=== PATIENT | male | born 1945 | race Caucasian/White ===

== ENCOUNTER 2017-04-09 11:52 | Observation (INO) | payer MEDICARE, OTHER ==
[~2017-04-09] VITALS: Ht 188 cm; Wt 105.0 kg
[2017-04-09] VITALS (7 sets, daily range): BP systolic 102–156; BP diastolic 65–114; PULSE 60–76; RESP 16–17; TEMP 97.8–98.2; O2SAT 96–97
[~2017-04-09 11:52] MED LIST: 1-ME1LIQ PO; ASPI81 PO; ATOR10 PO; CLOP75 PO; GLIM4TAB PO; LISI5 PO; METF500 PO; METO25 PO; OMEP20TA PO
[2017-04-09 12:48] LABS: AUTOMATED NEUTROPHIL # 4.5 TH/MM3 (1.8-7.7); BASOPHIL % 0.6 % (0.0-2.0); EOSINOPHIL # 0.5 TH/MM3 (0-0.4); EOSINOPHIL % 6.7 % (0.0-4.0); HEMATOCRIT 47.6 % (39.0-51.0); LYMPH % 22.3 % (9.0-44.0); LYMPHOCYTE # 1.6 TH/MM3 (1.0-4.8); MEAN CELL VOLUME 94.4 FL (80.0-100.0); MEAN CORPUSCULAR HEMOGLOBIN 31.9 PG (27.0-34.0); MEAN CORPUSCULAR HGB CONC 33.8 % (32.0-36.0); NEUT % 64.4 % (16.0-70.0); PLATELET COUNT 151 TH/MM3 (150-450); RED BLOOD COUNT 5.05 MIL/MM3 (4.50-5.90); RED CELL DISTRIBUTION WIDTH 14.3 % (11.6-17.2)
[2017-04-09 12:57] LABS: HEMO FLAGS AUTO DIFF
[2017-04-09 13:00] LABS: ANION GAP 7 MEQ/L (5-15); BICARBONATE 23.5 MEQ/L (21.0-32.0); BLOOD UREA NITROGEN 13 MG/DL (7-18); CHLORIDE 108 MEQ/L (98-107); GLOMERULAR FILTRATION RATE 84 ML/MIN (>89); POTASSIUM 4.3 MEQ/L (3.5-5.1); SODIUM (NA) 138 MEQ/L (136-145)
[2017-04-09] MEDS ORDERED: PANT40TA3 PO (13:00)
[2017-04-09] MEDS ORDERED: AMLO10 PO (13:00)
[2017-04-09] MEDS ORDERED: LISI-519 PO (13:00)
[2017-04-09] MEDS ORDERED: PIOG15TA5 PO (13:00)
[2017-04-09] MEDS ORDERED: ATOR1TAB18 PO (13:00)
[2017-04-09] MEDS ORDERED: GLIM4TAB PO (13:00)
--- NOTE | 2017-04-09 13:00 | PD ---
HPI Chief Complaint: Cardiac Complaint Time Seen by Provider: 12:48 Travel History International Travel<30 days: No Contact w/Intl Traveler<30days: No Traveled to known affect area: No History of Present Illness HPI This is a 72-year-old male with history of coronary artery disease with stenting in place, diabetes, hypertension, hyperlipidemia who presents for evaluation of chest pain. Symptoms started this morning when he woke up at 5 AM. He describes it as a left-sided chest tightness which waxes and wanes, no obvious aggravating factors, belching seems to make it somewhat worse. The patient was admitted in 2014 with an STEMI, underwent stenting of the LAD and he reports that his current symptoms feel similar. He denies any nausea, vomiting, abdominal pain, flank pain, fevers, chills, calf swelling, recent travel or surgery. He reports that he took 2 baby aspirin this morning. His kids club attendant is Dr. Sifeuntes, his primary care physician is Dr. Wesley. No other complaints. PFSH Past Medical History Hx Anticoagulant Therapy: Yes Arthritis: No Asthma: No Autoimmune Disease: No Anxiety: No Depression: No Heart Rhythm Problems: No Cancer: No Cardiac Catheterization: Yes (2009) Cardiomyopathy: Yes Cardiovascular Problems: Yes High Cholesterol: Yes Chest Pain: Yes Congestive Heart Failure: No COPD: No Cerebrovascular Accident: Yes Coronary Artery Disease: Yes Diabetes: Yes Patient Takes Glucophage: No Diminished Hearing: Yes ([place]) Endocrine: Yes Gastrointestinal Disorders: Yes GERD: Yes Genitourinary: No Hiatal Hernia: No Hypertension: Yes Kidney Stones: No Musculoskeletal: No Neurologic: Yes Psychiatric: No Reproductive: No Respiratory: No Immunizations Current: Yes Migraines: No Myocardial Infarction: Yes (X3 LAST RI 2009) Renal Failure: No Seizures: No Sleep Apnea: No Thyroid Disease: No Ulcer: No Tetanus Vaccination: > 5 Years Influenza Vaccination: Yes Past Surgical History Abdominal Surgery: Yes (APPENDECTOMY) Appendectomy: Yes Cardiac Surgery: Yes (PRIOR CARDIAC STENTS) Coronary Stent: Yes (X5 LAST DONE 2009) Ear Surgery: No Endocrine Surgery: No Eye Surgery: No Genitourinary Surgery: No Gynecologic Surgery: No Oral Surgery: No Thoracic Surgery: No Other Surgery: Yes Social History Alcohol Use: No Tobacco Use: No Substance Use: No Allergies-Medications (Allergen,Severity, Reaction): Coded Allergies: No Known Allergies (Unverified , 04/09/17) Reported Meds & Prescriptions Reported Meds & Active Scripts Active Azithromycin 250 Mg Tab 250 Mg PO DAILY 4 Days Reported Glimepiride 4 Mg Tab 4 Mg PO DAILY Take with breakfast or first main meal Pantoprazole (Pantoprazole Sodium) 40 Mg Tab 40 Mg PO DAILY Norvasc (Amlodipine Besylate) 10 Mg Tab 10 Mg PO DAILY Pioglitazone (Pioglitazone HCl) 15 Mg Tab 15 Mg PO DAILY Lisinopril 5 Mg Tab 5 Mg PO DAILY Atorvastatin (Atorvastatin Calcium) 80 Mg Tab 80 Mg PO HS Review of Systems Except as stated in HPI: all other systems reviewed are Neg Physical Exam Narrative GENERAL: Well-nourished male in no acute distress SKIN: Warm and dry. HEAD: Atraumatic. Normocephalic. EYES: Pupils equal and round. No scleral icterus. No injection or drainage. ENT: No nasal bleeding or discharge. Mucous membranes pink and moist. NECK: Trachea midline. No JVD. CARDIOVASCULAR: Regular rate and rhythm. No murmur appreciated. RESPIRATORY: No accessory muscle use. Clear to auscultation. Breath sounds equal bilaterally. GASTROINTESTINAL: Abdomen soft, non-tender, nondistended. Hepatic and splenic margins not palpable. MUSCULOSKELETAL: No obvious deformities. No clubbing. No cyanosis. No edema. NEUROLOGICAL: Awake and alert. No obvious cranial nerve deficits. Motor grossly within normal limits. Normal speech. PSYCHIATRIC: Appropriate mood and affect; insight and judgment normal. Data Data Last Documented VS Vital Signs Date Time Temp Pulse Resp B/P (MAP) Pulse Ox O2 Delivery O2 Flow Rate FiO2 04/09/17 13:17 17 04/09/17 13:12 97.8 76 123/65 (84) 97 Room Air Orders Orders Electrocardiogram (04/09/17 12:09) Complete Blood Count With Diff (04/09/17 12:09) Basic Metabolic Panel (Bmp) (04/09/17 12:09) Ckmb (Isoenzyme) Profile (04/09/17 12:09) Troponin I (04/09/17 12:09) Chest, Single Ap (04/09/17 12:09) Iv Access Insert/Monitor (04/09/17 12:09) Ecg Monitoring (04/09/17 12:09) Oxygen Administration (04/09/17 12:09) Oximetry (04/09/17 12:09) Nitroglycerin Sl (Nitrostat Sl) (04/09/17 13:00) CKMB (04/09/17 12:24) CKMB% (04/09/17 12:24) Admit Order (Ed Use Only) (04/09/17 13:50) Azithromycin (Zithromax) (04/09/17 14:00) Morphine Inj (Morphine Inj) (04/09/17 14:00) Labs Laboratory Tests Test 04/09/17 12:24 White Blood Count 7.0 TH/MM3 Red Blood Count 5.05 MIL/MM3 Hemoglobin 16.1 GM/DL Hematocrit 47.6 % Mean Corpuscular Volume 94.4 FL Mean Corpuscular Hemoglobin 31.9 PG Mean Corpuscular Hemoglobin Concent 33.8 % Red Cell Distribution Width 14.3 % Platelet Count 151 TH/MM3 Mean Platelet Volume 9.0 FL Neutrophils (%) (Auto) 64.4 % Lymphocytes (%) (Auto) 22.3 % Monocytes (%) (Auto) 6.0 % Eosinophils (%) (Auto) 6.7 % Basophils (%) (Auto) 0.6 % Neutrophils # (Auto) 4.5 TH/MM3 Lymphocytes # (Auto) 1.6 TH/MM3 Monocytes # (Auto) 0.4 TH/MM3 Eosinophils # (Auto) 0.5 TH/MM3 Basophils # (Auto) 0.0 TH/MM3 CBC Comment AUTO DIFF Differential Comment AUTO DIFF CONFIRMED Blood Urea Nitrogen 13 MG/DL Creatinine 0.89 MG/DL Random Glucose 191 MG/DL Calcium Level 9.3 MG/DL Sodium Level 138 MEQ/L Potassium Level 4.3 MEQ/L Chloride Level 108 MEQ/L Carbon Dioxide Level 23.5 MEQ/L Anion Gap 7 MEQ/L Estimat Glomerular Filtration Rate 84 ML/MIN Total Creatine Kinase 143 U/L Creatine Kinase MB 2.6 NG/ML Troponin I LESS THAN 0.02 NG/ML MDM Medical Decision Making Medical Screen Exam Complete: Yes Emergency Medical Condition: Yes Medical Record Reviewed: Yes Differential Diagnosis Angina, acute coronary syndrome, pneumothorax, hemothorax, pericarditis, myocarditis, pneumonia, bronchitis, GERD Narrative Course The patient was placed on ECG monitoring and pulse oximetry. A 12-lead EKG was obtained. Plan is for basic lab work, chest x-ray. The patient was given 2 doses of sublingual nitroglycerin and he does report improvement in his pain with the nitroglycerin pain decreased from a 4 out of 10 to a 1 out of 10. His lab work and imaging studies have been reviewed. Initial set of cardiac enzymes are negative. Chest x-ray reveals mild left lower lobe infiltrates-he does report that he has had a dry cough lately. He is not febrile or tachycardic with no leukocytosis. The patient will be started on azithromycin. Given his significant cardiac risk factors, the plan is to admit him to the chest pain center for serial cardiac enzymes and rule out purposes. He is agreeable. Diagnosis Primary Impression: Chest pain Qualified Codes: R07.9 - Chest pain, unspecified Additional Impression: Lung infiltrate Admitting Information Admitting Physician Requests: Observation Scripts Azithromycin (Azithromycin) 250 Mg Tab 250 MG PO DAILY for Infection for 4 Days, #4 TAB 0 Refills Prov: Frantz Young MD 04/09/17 Thad Quiros Apr 09, 2017 13:00
[2017-04-09 13:02] LABS: CREATINE KINASE 143 U/L (39-308)
[2017-04-09] MEDS: NITROGLYCERIN 0.4 MG SL 25 TABS/BTL SL SCH ×2 (13:03→13:12)
[2017-04-09 13:13] LABS: SCAN/DIFF AUTO DIFF CONFIRMED
[2017-04-09 13:14] LABS: CKMB 2.6 NG/ML (0.5-3.6)
--- NOTE | 2017-04-09 13:45 | RADRPT ---
EXAM DATE/TIME: 04/09/2017 13:28 [facility] COMPARISON: CHEST SINGLE AP, June 27, 2015, 7:31. INDICATIONS : Chest Pain MEDICAL HISTORY : Cardiovascular disease. SURGICAL HISTORY : 5 cardiac stents ENCOUNTER: Initial ACUITY: 1 day PAIN SCORE: 4/10 LOCATION: Bilateral chest FINDINGS: There is mild infiltrate at the lateral left lung base. Right lung is clear. No significant effusion. Cardiac contours are satisfactory and stable. CONCLUSION: Mild left base infiltrate Michael Knox MD on April 09, 2017 at 13:43 Board Certified Radiologist. This report was verified electronically.
[2017-04-09] MEDS ORDERED: AZIT250T3 PO (13:55)
[2017-04-09] MEDS ORDERED: MORPHINE SULFATE 2 MG/ML INJ IV PUSH ONE (14:00)
[2017-04-09] MEDS ORDERED: AZITHROMYCIN 250 MG TAB PO ONE (14:00)
--- NOTE | 2017-04-09 14:16 | EKG ---
Date Performed: 04/09/2017 Time Performed: 12:00:01 PTAGE: 72 years EKG: Sinus rhythm WITH FIRST DEGREE AV BLOCK ABNORMAL ECG PREVIOUS TRACING : 04/05/2017 18.28 DOCTOR: Malcom Verma Interpretating Date/Time 04/09/2017 14:13:38
[2017-04-09] MEDS ORDERED: ACETAMINOPHEN 500 MG CPLT PO PRN (15:15)
[2017-04-09] MEDS ORDERED: NITROGLYCERIN 0.4 MG SL 25 TABS/BTL SL PRN (15:15)
[2017-04-09] MEDS ORDERED: SODIUM CHLORIDE 0.9% FLUSH 10 ML FLUSH IV FLUSH PRN (15:15)
[2017-04-09] MEDS ORDERED: ONDANSETRON HCL 4 MG/2 ML VIAL IV PUSH PRN (15:15)
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
--- NOTE | 2017-04-09 16:49 | HHI.DCPOC ---
Discharge Care Plan Diagnosis: (1) Hx of coronary artery disease (2) Musculoskeletal chest pain (3) Lung infiltrate Goals to Promote Your Health * To prevent worsening of your condition and complications * To maintain your health at the optimal level Directions to Meet Your Goals Take your medications as prescribed Follow your dietary instruction Follow activity as directed Keep your appointments as scheduled Take your immunizations and boosters as scheduled If your symptoms worsen call your PCP, if no PCP go to Urgent Care Center or Emergency Room Smoking is Dangerous to Your Health. Avoid second hand smoke Call the 24-hour hour crisis hotline for domestic abuse at Mercedes Dickens Apr 09, 2017 16:49
[2017-04-09] MEDS ORDERED: SODIUM CHLORIDE 0.9% FLUSH 10 ML FLUSH IV FLUSH SCH (21:00)
[2017-04-10] MEDS ORDERED: ASPIRIN 325 MG TAB PO SCH (09:00)
--- NOTE | 2017-04-10 12:19 | TR ---
Date Performed: 04/09/2017 Time Performed: 16:01:46 DOCTOR: Ángel Francisco DRUG LIST: CLINICAL HISTORY: CHEST PAIN REASON FOR TEST: Chest pain REASON FOR ENDING: OBSERVATION: CONCLUSION: Jose protocol completed. Stopped sec to reaching target heart rate and leg fatigue. Maximum XE=827 Target HR Achieved=87.0% Maximum PG=452/84 Total Exercise Time=7:02. No reprod chest discomfort. No ectopy. No st t segment changes to sugg ischemia. Good exercise tolerance. Normal bp response. Recovery quick and unremarkable. COMMENTS: Conclusion: Normal treadmill exercise. No evidence of ischemia.
== END 2017-04-09 17:29 | disposition home or self-care (01) ==
LOC: NEPE 11:52 → NEDA 13:51 → NEPGCP 16:34
DX: R07.89 Other chest pain (principal); I25.10 Atherosclerotic heart disease of native coronary artery without angina pectoris; R91.8 Other nonspecific abnormal finding of lung field; E11.9 Type 2 diabetes mellitus without complications; I10 Essential (primary) hypertension; I42.9 Cardiomyopathy, unspecified; I25.2 Old myocardial infarction; E78.00 Pure hypercholesterolemia, unspecified; H91.90 Unspecified hearing loss, unspecified ear; K21.9 Gastro-esophageal reflux disease without esophagitis; Z79.01 Long term (current) use of anticoagulants; Z86.73 Personal history of transient ischemic attack (TIA), and cerebral infarction without residual deficits; Z95.5 Presence of coronary angioplasty implant and graft
CPT/HCPCS: 71010; 80048; 82550; 82552; 84484; 85025; 93005; 93017; 96374; 99285; G0378; J2270